=== PATIENT | female | born 1995 | race American Indian/Alaskan Native ===

== ENCOUNTER 2019-05-14 21:17 | Emergency (ER) | payer SELFPAY ==
[2019-05-14 21:22] VITALS: BP 122/79
--- NOTE | 2019-05-14 21:23 | Emergency Department Report ---
Blank Doc - Documentation Documentation: 23-year-old female that presents with URI symptoms. This initial assessment/diagnostic orders/clinical plan/treatment(s) is/are subject to change based on patient's health status, clinical progression and re- assessment by fellow clinical providers in the ED. Further treatment and workup at subsequent clinical providers discretion. Patient/guardians urged not to elope from the ED as their condition may be serious if not clinically assessed and managed. Initial orders include: 1- Patient sent to [facility] for further evaluation and treatment 2- CXR 3- UA
[2019-05-14 21:48] LABS: Bilirubin,Urine NEG (Negative); Blood,Urine SM (Negative); Color,Urine Yellow (Yellow); Mucus,Urine FEW /HPF; Protein,Urine <15 mg/dL mg/dL (Negative); Urobilinogen,Urine < 2.0 mg/dL (<2.0)
[2019-05-14 22:09] LABS: HCG Qualitative,Urine Negative (Negative)
--- NOTE | 2019-05-14 22:41 | XRay Report ---
CHEST 2 VIEWS INDICATION / CLINICAL INFORMATION: Cough. COMPARISON: None available. FINDINGS: SUPPORT DEVICES: None. HEART / MEDIASTINUM: The heart size and pulmonary vasculature are normal. LUNGS / PLEURA: No significant pulmonary or pleural abnormality. No pneumothorax. ADDITIONAL FINDINGS: No significant additional findings. IMPRESSION: No acute findings. Signer Name: Fly Bradley MD Signed: 05/14/2019 10:37 PM Workstation Name: [id number]
--- NOTE | 2019-05-14 23:25 | Emergency Department Report ---
- General Chief Complaint: Upper Respiratory Infection Stated Complaint: FLU LIKE SYMPTOMS Time Seen by Provider: 05/14/19 21:21 Source: patient Mode of arrival: Ambulatory Limitations: No Limitations - History of Present Illness Initial Comments: 23-year-old female that presents with URI symptoms She c/o runny nose, stuffy nose, itchy eyes, watery eyes, ear pain, sore throat, dry cough for the past 3 day(s) -Pain severity: 4/10, she denies sore throat as the main complaint without concurrent cold-like symptoms. She has not therapies that have improved symptoms. MD Complaint: cough, sore throat, rhinorrhea, nasal congestion Onset/Timin -: Gradual, days(s) Severity scale (0 -10): 4 Quality: dull Consistency: constant Improves With: nothing Worsens With: nothing Context: sick contacts Associated Symptoms: denies other symptoms - Related Data Previous Rx's Medication Instructions Recorded Last Taken Type Dicyclomine [Bentyl] 10 mg PO QID PRN #20 capsule 11/09/15 Unknown Rx Ondansetron [Zofran Odt] 4 mg PO QID PRN #20 tab.rapdis 11/09/15 Unknown Rx Fluticasone [Flonase] 1 spray NS QDAY #1 bottle 05/14/19 Unknown Rx Prednisone [predniSONE 5 mg (6-Day 5 mg PO .TAPER #1 tab.ds.pk 05/14/19 Unknown Rx Pack, 21 Tabs)] guaiFENesin ER [Mucinex ER] 600 mg PO Q12H 10 Days #20 05/14/19 Unknown Rx tablet.er Allergies Allergy/AdvReac Type Severity Reaction Status Date / Time No Known Allergies Allergy Unverified 09/27/13 14:42 ED Review of Systems ROS: Stated complaint: FLU LIKE SYMPTOMS Other details as noted in HPI Comment: All other systems reviewed and negative ENT: ear pain, throat pain Respiratory: cough Cardiovascular: denies: chest pain Gastrointestinal: denies: abdominal pain, nausea, vomiting ED Past Medical Hx - Past Medical History Previous Medical History?: No Hx Hypertension: No Hx Congestive Heart Failure: No Hx Diabetes: No Hx Deep Vein Thrombosis: No Hx Renal Disease: No Hx Sickle Cell Disease: No Hx Seizures: No Hx Asthma: No Hx COPD: No Hx HIV: No - Surgical History Past Surgical History?: No - Social History Smoking Status: Never Smoker Substance Use Type: None - Medications Home Medications: Home Medications Medication Instructions Recorded Confirmed Last Taken Type Dicyclomine [Bentyl] 10 mg PO QID PRN #20 capsule 11/09/15 Unknown Rx Ondansetron [Zofran Odt] 4 mg PO QID PRN #20 tab.rapdis 11/09/15 Unknown Rx Fluticasone [Flonase] 1 spray NS QDAY #1 bottle 05/14/19 Unknown Rx Prednisone [predniSONE 5 mg (6-Day 5 mg PO .TAPER #1 tab.ds.pk 05/14/19 Unknown Rx Pack, 21 Tabs)] guaiFENesin ER [Mucinex ER] 600 mg PO Q12H 10 Days #20 05/14/19 Unknown Rx tablet.er ED Physical Exam - General Limitations: No Limitations General appearance: alert, in no apparent distress - Head Head exam: Present: atraumatic, normocephalic - Eye Eye exam: Present: normal appearance, PERRL, EOMI Pupils: Present: normal accommodation, irregular - ENT ENT exam: Present: TM's normal bilaterally, other (mild nasal mucosal erythema, no pharyngeal erythema) - Respiratory Respiratory exam: Present: normal lung sounds bilaterally - Cardiovascular Cardiovascular Exam: Present: normal rhythm. Absent: regular rate - GI/Abdominal GI/Abdominal exam: Present: soft - Back Exam Back exam: Present: normal inspection - Neurological Exam Neurological exam: Present: alert, oriented X3, CN II-XII intact - Psychiatric Psychiatric exam: Present: normal affect ED Course Vital Signs 05/14/19 21:21 Temperature 97.9 F Pulse Rate 72 Respiratory 20 Rate Blood Pressure 122/79 O2 Sat by Pulse 98 Oximetry Critical care attestation.: If time is entered above; I have spent that time in minutes in the direct care of this critically ill patient, excluding procedure time. ED Disposition Clinical Impression: Viral upper respiratory infection Disposition: DC-01 TO HOME OR SELFCARE Is pt being admited?: No Does the pt Need Aspirin: No Condition: Stable Instructions: Upper Respiratory Infection (ED) Prescriptions: Fluticasone [Flonase] 1 spray NS QDAY #1 bottle guaiFENesin ER [Mucinex ER] 600 mg PO Q12H 10 Days #20 tablet.er Prednisone [predniSONE 5 mg (6-Day Pack, 21 Tabs)] 5 mg PO .TAPER #1 tab.ds.pk Referrals: KELECHI GUZMÁN MD [Primary Care Provider] - 3-5 Days Forms: Work/School Release Form(ED)
== END 2019-05-14 23:50 | disposition home or self-care (01) ==
LOC: ED 21:17
DX: J06.9 Acute upper respiratory infection, unspecified (principal)
CPT/HCPCS: 71046; 81001; 81025

== ENCOUNTER 2020-03-24 05:08 | Emergency (ER) | payer OTHER ==
[2020-03-24] MEDS ORDERED: MORPHINE 4 MG/1 ML INJ IV ONE (05:24)
--- NOTE | 2020-03-24 05:26 | Event Note ---
Date: 03/24/20 Medical screening note: 24-year-old female brought to the hospital by EMS complaining of right-sided abdominal pain, fairly tender, with nausea, vomiting and diarrhea. She states that she is not . Check labs, give pain medicine, obtain EKG, reassess, anticipate need for objective imaging, ultrasound versus CT scan, imaging selection will depend on status
[2020-03-24] MEDS: ONDANSETRON 4 MG/2 ML INJ IV ONE ×2 (05:49)
[2020-03-24 05:59] LABS: Basophils # (Auto) 0.1 K/mm3 (0.0-0.1); Basophils % (Auto) 0.7 % (0.0-1.8); Eosinophils # (Auto) 0.1 K/mm3 (0.0-0.4); Hematocrit 36.8 % (30.3-42.9); Hemoglobin 12.3 gm/dl (10.1-14.3); Lymphocytes # (Auto) 2.7 K/mm3 (1.2-5.4); Lymphocytes % (Auto) 32.7 % (13.4-35.0); Mean Corpuscular HGB Conc 34 % (30-34); Mean Corpuscular Volume 84 fl (79-97); Monocytes # (Auto) 0.5 K/mm3 (0.0-0.8); Monocytes % (Auto) 6.4 % (0.0-7.3); Platelet Count 279 K/mm3 (140-440); Red Blood Count 4.41 M/mm3 (3.65-5.03); Red Cell Distribution Width 14.4 % (13.2-15.2)
[2020-03-24] MEDS ORDERED: METOCLOPRAMIDE 10 MG/2 ML INJ IV ONE (07:05)
--- NOTE | 2020-03-24 07:09 | Emergency Department Report ---
ED Abdominal Pain HPI - General Chief Complaint: Abdominal Pain Stated Complaint: ABD PAIN Time Seen by Provider: 03/24/20 06:47 Source: patient, EMS Mode of arrival: Stretcher Limitations: No Limitations - History of Present Illness Initial Comments: Patient is 24 years old female with no significant past medical history. Patient brought to the emergency room via EMS from home for evaluation of abdominal pain, diffuse, crampy with no radiation. Patient stated that she has this pain for the last 2 to 3 days. Patient pain associated with significant nausea and vomiting and diarrhea. Patient denied any fever or chills. No chest pain or shortness of breath. MD Complaint: abdominal pain Severity scale (0 -10): 10 - Related Data Previous Rx's Medication Instructions Recorded Last Taken Type Dicyclomine [Bentyl] 10 mg PO QID PRN #20 capsule 11/09/15 Unknown Rx Ondansetron [Zofran Odt] 4 mg PO QID PRN #20 tab.rapdis 11/09/15 Unknown Rx Fluticasone [Flonase] 1 spray NS QDAY #1 bottle 05/14/19 Unknown Rx Prednisone [predniSONE 5 mg (6-Day 5 mg PO .TAPER #1 tab.ds.pk 05/14/19 Unknown Rx Pack, 21 Tabs)] guaiFENesin ER [Mucinex ER] 600 mg PO Q12H 10 Days #20 05/14/19 Unknown Rx tablet.er Allergies Allergy/AdvReac Type Severity Reaction Status Date / Time No Known Allergies Allergy Unverified 09/27/13 14:42 ED Review of Systems ROS: Stated complaint: ABD PAIN Other details as noted in HPI Comment: All other systems reviewed and negative Constitutional: denies: chills, fever Respiratory: denies: cough, shortness of breath, SOB with exertion, wheezing Cardiovascular: denies: chest pain, palpitations Gastrointestinal: abdominal pain, nausea, vomiting, diarrhea. denies: constipation, hematemesis, melena, hematochezia Genitourinary: denies: urgency, dysuria Musculoskeletal: denies: back pain Neurological: denies: headache, weakness, numbness, paresthesias, confusion ED Past Medical Hx - Past Medical History Previous Medical History?: No Hx Hypertension: No Hx Congestive Heart Failure: No Hx Diabetes: No Hx Deep Vein Thrombosis: No Hx Renal Disease: No Hx Sickle Cell Disease: No Hx Seizures: No Hx Asthma: No Hx COPD: No Hx HIV: No - Surgical History Past Surgical History?: No - Social History Smoking Status: Never Smoker Substance Use Type: None - Medications Home Medications: Home Medications Medication Instructions Recorded Confirmed Last Taken Type Dicyclomine [Bentyl] 10 mg PO QID PRN #20 capsule 11/09/15 Unknown Rx Ondansetron [Zofran Odt] 4 mg PO QID PRN #20 tab.rapdis 11/09/15 Unknown Rx Fluticasone [Flonase] 1 spray NS QDAY #1 bottle 05/14/19 Unknown Rx Prednisone [predniSONE 5 mg (6-Day 5 mg PO .TAPER #1 tab.ds.pk 05/14/19 Unknown Rx Pack, 21 Tabs)] guaiFENesin ER [Mucinex ER] 600 mg PO Q12H 10 Days #20 05/14/19 Unknown Rx tablet.er ED Physical Exam - General Limitations: No Limitations General appearance: alert, in distress (Moderate distress secondary to pain.) - Head Head exam: Present: atraumatic, normocephalic, normal inspection - Eye Eye exam: Present: normal appearance, PERRL - ENT ENT exam: Present: mucous membranes dry - Neck Neck exam: Present: normal inspection, full ROM. Absent: tenderness, meningismus - Respiratory Respiratory exam: Present: normal lung sounds bilaterally - Cardiovascular Cardiovascular Exam: Present: regular rate, normal rhythm, normal heart sounds - GI/Abdominal GI/Abdominal exam: Present: soft, tenderness, normal bowel sounds. Absent: distended, guarding, rebound, rigid, organomegaly, mass, bruit, pulsatile mass, hernia - Extremities Exam Extremities exam: Present: normal inspection, full ROM, normal capillary refill. Absent: tenderness, pedal edema, calf tenderness - Back Exam Back exam: Present: normal inspection, full ROM. Absent: CVA tenderness (R), CVA tenderness (L) - Neurological Exam Neurological exam: Present: alert, oriented X3, CN II-XII intact, normal gait. Absent: motor sensory deficit - Skin Skin exam: Present: warm, intact, normal color ED Course Vital Signs 03/24/20 03/24/20 03/24/20 05:24 05:50 06:09 Temperature 98.3 F Pulse Rate 75 Respiratory 20 29 H 20 Rate Blood Pressure 120/78 [Right] O2 Sat by Pulse 100 99 Oximetry 03/24/20 03/24/20 03/24/20 06:20 07:21 08:52 Temperature Pulse Rate 70 Respiratory 20 20 16 Rate Blood Pressure 120/59 [Right] O2 Sat by Pulse 98 Oximetry ED Medical Decision Making - Lab Data Result diagrams: 03/24/20 05:49 03/24/20 05:49 - Radiology Data Radiology results: report reviewed - Medical Decision Making Patient is 24 years old female with no significant past medical history. Patient brought to the emergency room via EMS from home for evaluation of abdominal pain, diffuse, crampy with no radiation. Patient stated that she has this pain for the last 2 to 3 days. Patient pain associated with significant nausea and vomiting and diarrhea. Patient denied any fever or chills. No chest pain or shortness of breath. Patient received morphine, Zofran, Reglan and Bentyl. Patient stated that she is feeling much better. Labs reviewed and is unremarkable. CT abdomen and pelvis is negative for acute finding. Patient symptoms is most likely consistent with gastroenteritis however patient advised to follow-up with her primary care physician in the next 2 to 3 days and to return to the ER she develop any new symptoms. Critical care attestation.: If time is entered above; I have spent that time in minutes in the direct care of this critically ill patient, excluding procedure time. ED Disposition Clinical Impression: Abdominal pain, Gastroenteritis Disposition: DC-01 TO HOME OR SELFCARE Is pt being admited?: No Condition: Stable Instructions: Abdominal Pain (ED), Gastroenteritis (ED) Referrals: PRIMARY CARE, [Primary Care Provider] - 3-5 Days
[2020-03-24 07:26] LABS: Blood Urea Nitrogen 9 mg/dL (7-17)
[2020-03-24 07:27] LABS: BUN/Creatinine Ratio 11; Bilirubin,Direct 0.2 mg/dL (0-0.2); Calcium 8.5 mg/dL (8.4-10.2)
[2020-03-24 07:28] LABS: Alanine Aminotransferase 15 units/L (7-56); Albumin 3.8 g/dL (3.9-5); Hemolysis Index 68
[2020-03-24] MEDS ORDERED: MORPHINE 2 MG/1 ML INJ IV ONE (08:50)
--- NOTE | 2020-03-24 08:58 | Cat Scan Report ---
CT abdomen pelvis w con INDICATION / CLINICAL INFORMATION: MAIN. 100 cc of Omnipaque 300 was injected intravenously TECHNIQUE: All CT scans at this location are performed using CT dose reduction for ALARA by means of automated e xposure control. COMPARISON: None available. FINDINGS: No free fluid is seen in the abdomen. The liver, spleen, kidneys, pancreas, adrenal glands, gallbladd er and great vessels are normal. No enlarged mesenteric or retroperitoneal lymph nodes are seen In the pelvis, no free fluid is seen. No enlarged lymph nodes are identified. The bladder and the hakeem endix are normal. IMPRESSION: Negative CT of the abdomen and pelvis. Signer Name: Nitin Ramirez MD FACR Signed: 03/24/2020 8:54 AM Workstation Name: [id number]
[2020-03-24] MEDS ORDERED: DICYCLOMINE 20 MG/2 ML INJ IM ONE (09:22)
[2020-03-24] MEDS ORDERED: diphenhydrAMINE 50 MG/ML VIAL IV ONE (09:40)
[2020-03-24 09:52] VITALS: BP 114/62
== END 2020-03-24 10:30 | disposition home or self-care (01) ==
LOC: ED 05:08
DX: K52.9 Noninfective gastroenteritis and colitis, unspecified (principal); Z79.899 Other long term (current) drug therapy
CPT/HCPCS: 36415; 74177; 80048; 80076; 82550; 83690; 83735; 84702; 85025; 93005; 96372; 96375; 96376; 99285; J0500; J1200; J2270; J2405; J2765; Q9967; 96374

== ENCOUNTER 2020-06-30 08:34 | Emergency (ER) | payer OTHER ==
[2020-06-30] MEDS ORDERED: SODIUM CHLORIDE 0.9% 1000 ML 1,000 ML IV ONE (09:31)
[2020-06-30] MEDS ORDERED: ONDANSETRON 4 MG/2 ML INJ IV ONE ×2 (09:31→15:42)
--- NOTE | 2020-06-30 09:33 | Emergency Department Report ---
ED General Adult HPI - General Chief complaint: Nausea/Vomiting/Diarrhea Stated complaint: ABD PAIN/VOMITING Time Seen by Provider: 06/30/20 09:13 Source: patient Mode of arrival: Ambulatory Limitations: No Limitations - History of Present Illness Initial comments: 24-year-old -[place] Citizen patient presents with complaints of sudden onset of abdominal pain and nausea and vomiting x this morning. She denies any past medical history. Patient rates her abdominal pain is a 10/10 in severity and denies any hematemesis/coffee-ground emesis, diarrhea/constipation, melena/hematochezia, fever/chills/sweats, cough, chest pain, or shortness of breath. She also denies any urinary symptoms or vaginal discharge/dyspareunia. Severity scale (0 -10): 7 - Related Data Previous Rx's Medication Instructions Recorded Last Taken Type Dicyclomine [Bentyl] 10 mg PO QID PRN #20 capsule 11/09/15 Unknown Rx Ondansetron [Zofran Odt] 4 mg PO QID PRN #20 tab.rapdis 11/09/15 Unknown Rx Fluticasone [Flonase] 1 spray NS QDAY #1 bottle 05/14/19 Unknown Rx Prednisone [predniSONE 5 mg (6-Day 5 mg PO .TAPER #1 tab.ds.pk 05/14/19 Unknown Rx Pack, 21 Tabs)] guaiFENesin ER [Mucinex ER] 600 mg PO Q12H 10 Days #20 05/14/19 Unknown Rx tablet.er Dicyclomine [Bentyl] 20 mg PO QID #20 tablet 03/24/20 Unknown Rx Metoclopramide [Reglan] 10 mg PO TID PRN #20 tab 03/24/20 Unknown Rx Ondansetron [Zofran Odt] 4 mg PO Q8HR #15 tab.rapdis 06/30/20 Unknown Rx Promethazine [Phenergan] [address] Q6HR PRN #20 supp.rect 06/30/20 Unknown Rx Allergies Allergy/AdvReac Type Severity Reaction Status Date / Time No Known Allergies Allergy Unverified 09/27/13 14:42 ED Review of Systems ROS: Stated complaint: ABD PAIN/VOMITING Other details as noted in HPI Constitutional: denies: chills, diaphoresis, fever, malaise, weakness ENT: denies: throat pain Respiratory: denies: cough, shortness of breath Cardiovascular: denies: chest pain Endocrine: denies: excessive sweating Gastrointestinal: abdominal pain, nausea, vomiting. denies: diarrhea, constipation, hematemesis, melena, hematochezia Genitourinary: denies: urgency, dysuria, frequency, hematuria, discharge Skin: denies: rash, lesions, change in color Neurological: denies: headache Hematological/Lymphatic: denies: swollen glands ED Past Medical Hx - Past Medical History Previous Medical History?: Yes Hx Hypertension: No Hx Congestive Heart Failure: No Hx Diabetes: No Hx Deep Vein Thrombosis: No Hx Renal Disease: No Hx Sickle Cell Disease: No Hx Seizures: No Hx Asthma: No Hx COPD: No Hx HIV: No - Surgical History Past Surgical History?: No - Social History Smoking Status: Never Smoker Substance Use Type: None - Medications Home Medications: Home Medications Medication Instructions Recorded Confirmed Last Taken Type Dicyclomine [Bentyl] 10 mg PO QID PRN #20 capsule 11/09/15 Unknown Rx Ondansetron [Zofran Odt] 4 mg PO QID PRN #20 tab.rapdis 11/09/15 Unknown Rx Fluticasone [Flonase] 1 spray NS QDAY #1 bottle 05/14/19 Unknown Rx Prednisone [predniSONE 5 mg (6-Day 5 mg PO .TAPER #1 tab.ds.pk 05/14/19 Unknown Rx Pack, 21 Tabs)] guaiFENesin ER [Mucinex ER] 600 mg PO Q12H 10 Days #20 05/14/19 Unknown Rx tablet.er Dicyclomine [Bentyl] 20 mg PO QID #20 tablet 03/24/20 Unknown Rx Metoclopramide [Reglan] 10 mg PO TID PRN #20 tab 03/24/20 Unknown Rx Ondansetron [Zofran Odt] 4 mg PO Q8HR #15 tab.rapdis 06/30/20 Unknown Rx Promethazine [Phenergan] [address] Q6HR PRN #20 supp.rect 06/30/20 Unknown Rx ED Physical Exam - General Limitations: No Limitations General appearance: alert, obese, other (Patient appears uncomfortable holding abdomen; active vomiting) - Head Head exam: Present: atraumatic, normocephalic - Eye Eye exam: Present: normal appearance. Absent: scleral icterus - Neck Neck exam: Present: normal inspection, full ROM - Respiratory Respiratory exam: Present: normal lung sounds bilaterally. Absent: respiratory distress - Cardiovascular Cardiovascular Exam: Present: regular rate, normal rhythm, normal heart sounds - GI/Abdominal GI/Abdominal exam: Present: soft, tenderness, guarding, rebound, normal bowel sounds - Extremities Exam Extremities exam: Present: normal inspection, full ROM - Back Exam Back exam: Present: normal inspection. Absent: CVA tenderness (R), CVA tenderness (L) - Neurological Exam Neurological exam: Present: alert, oriented X3 - Psychiatric Psychiatric exam: Present: normal affect - Skin Skin exam: Present: warm, dry, intact, normal color. Absent: rash, cyanosis, diaphoretic, ecchymosis ED Course Vital Signs 06/30/20 08:41 Temperature 97.6 F Pulse Rate 81 Respiratory 18 Rate Blood Pressure 122/87 Blood Pressure 122/87 [Right] O2 Sat by Pulse 100 Oximetry ED Medical Decision Making - Lab Data Result diagrams: 06/30/20 09:23 06/30/20 09:23 Lab Results 06/30/20 06/30/20 06/30/20 Range/Units 09:23 09:23 09:23 WBC 7.4 (4.5-11.0) K/mm3 RBC 4.22 (3.65-5.03) M/mm3 Hgb 12.3 (10.1-14.3) gm/dl Hct 36.7 (30.3-42.9) % MCV 87 (79-97) fl MCH 29 (28-32) pg MCHC 34 (30-34) % RDW 14.3 (13.2-15.2) % Plt Count 260 (140-440) K/mm3 Lymph % (Auto) 29.0 (13.4-35.0) % [place] % (Auto) 6.1 (0.0-7.3) % Eos % (Auto) 1.3 (0.0-4.3) % Baso % (Auto) 0.5 (0.0-1.8) % Lymph # (Auto) 2.1 (1.2-5.4) K/mm3 [place] # (Auto) 0.4 (0.0-0.8) K/mm3 Eos # (Auto) 0.1 (0.0-0.4) K/mm3 Baso # (Auto) 0.0 (0.0-0.1) K/mm3 Seg Neutrophils % 63.1 (40.0-70.0) % Seg Neutrophils # 4.6 (1.8-7.7) K/mm3 Sodium 139 (137-145) mmol/L Potassium 3.9 (3.6-5.0) mmol/L Chloride 103.4 (98-107) mmol/L Carbon Dioxide 26 (22-30) mmol/L Anion Gap 14 mmol/L BUN 8 (7-17) mg/dL Creatinine 0.8 (0.6-1.2) mg/dL Estimated GFR > 60 ml/min BUN/Creatinine Ratio 10 % Glucose 127 H (65-100) mg/dL Calcium 9.2 (8.4-10.2) mg/dL Total Bilirubin 1.00 (0.1-1.2) mg/dL AST 14 (5-40) units/L ALT 15 (7-56) units/L Alkaline Phosphatase 74 (35-129) units/L Total Protein 6.9 (6.3-8.2) g/dL Albumin 3.7 L (3.9-5) g/dL Albumin/Globulin Ratio 1.2 % Lipase 22 (13-60) units/L HCG, Quant < 2 (0-4) mIU/mL Urine Color (Yellow) Urine Turbidity (Clear) Urine pH (5.0-7.0) Ur Specific [place] (1.003-1.030) Urine Protein (Negative) mg/dL Urine Glucose (UA) (Negative) mg/dL Urine Ketones (Negative) mg/dL Urine Blood (Negative) Urine Nitrite (Negative) Urine Bilirubin (Negative) Urine Urobilinogen (<2.0) mg/dL Ur Leukocyte Esterase (Negative) Urine WBC (Auto) (0.0-6.0) /HPF Urine RBC (Auto) (0.0-6.0) /HPF U Epithel Cells (Auto) (0-13.0) /HPF Urine Mucus /HPF 06/30/20 Range/Units 11:42 WBC (4.5-11.0) K/mm3 RBC (3.65-5.03) M/mm3 Hgb (10.1-14.3) gm/dl Hct (30.3-42.9) % MCV (79-97) fl MCH (28-32) pg MCHC (30-34) % RDW (13.2-15.2) % Plt Count (140-440) K/mm3 Lymph % (Auto) (13.4-35.0) % [place] % (Auto) (0.0-7.3) % Eos % (Auto) (0.0-4.3) % Baso % (Auto) (0.0-1.8) % Lymph # (Auto) (1.2-5.4) K/mm3 [place] # (Auto) (0.0-0.8) K/mm3 Eos # (Auto) (0.0-0.4) K/mm3 Baso # (Auto) (0.0-0.1) K/mm3 Seg Neutrophils % (40.0-70.0) % Seg Neutrophils # (1.8-7.7) K/mm3 Sodium (137-145) mmol/L Potassium (3.6-5.0) mmol/L Chloride (98-107) mmol/L Carbon Dioxide (22-30) mmol/L Anion Gap mmol/L BUN (7-17) mg/dL Creatinine (0.6-1.2) mg/dL Estimated GFR ml/min BUN/Creatinine Ratio % Glucose (65-100) mg/dL Calcium (8.4-10.2) mg/dL Total Bilirubin (0.1-1.2) mg/dL AST (5-40) units/L ALT (7-56) units/L Alkaline Phosphatase (35-129) units/L Total Protein (6.3-8.2) g/dL Albumin (3.9-5) g/dL Albumin/Globulin Ratio % Lipase (13-60) units/L HCG, Quant (0-4) mIU/mL Urine Color Yellow (Yellow) Urine Turbidity Clear (Clear) Urine pH 9.0 H (5.0-7.0) Ur Specific [place] 1.044 H (1.003-1.030) Urine Protein <15 mg/dl (Negative) mg/dL Urine Glucose (UA) Neg (Negative) mg/dL Urine Ketones Tr (Negative) mg/dL Urine Blood Neg (Negative) Urine Nitrite Neg (Negative) Urine Bilirubin Neg (Negative) Urine Urobilinogen < 2.0 (<2.0) mg/dL Ur Leukocyte Esterase Neg (Negative) Urine WBC (Auto) < 1.0 (0.0-6.0) /HPF Urine RBC (Auto) 1.0 (0.0-6.0) /HPF U Epithel Cells (Auto) 1.0 (0-13.0) /HPF Urine Mucus Few /HPF - Radiology Data Radiology results: report reviewed CT ABDOMEN AND PELVIS WITH CONTRAST INDICATION / CLINICAL INFORMATION: acute right sided abdominal pain. TECHNIQUE: Axial CT images were obtained through the abdomen and pelvis after IV contrast. All CT scans at this location are performed using CT dose reduction for ALARA by means of automated exposure control. COMPARISON: 03/24/2020 FINDINGS: LOWER CHEST: No significant abnormality. LIVER: No significant abnormality. GALLBLADDER: No significant abnormality. BILE DUCTS: No significant abnormality. PANCREAS: No significant abnormality. SPLEEN: Splenule is noted. ADRENALS: No significant abnormality. RIGHT KIDNEY / URETER: No significant abnormality. LEFT KIDNEY / URETER: No significant abnormality. STOMACH / SMALL BOWEL: No significant abnormality. COLON: No significant abnormality. APPENDIX: No significant abnormality. PERITONEUM: No free fluid. No free air. No fluid collection. LYMPH NODES: No significant adenopathy. AORTA / ARTERIES: No significant abnormality. IVC / VEINS: Phleboliths noted throughout the pelvis. URINARY BLADDER: No significant abnormality. REPRODUCTIVE ORGANS: No significant abnormality. ADDITIONAL FINDINGS: None. SKELETAL SYSTEM: No significant abnormality. IMPRESSION: 1. No acute abnormality. No significant interval change since prior exam. ULTRASOUND ABDOMEN, LIMITED (RIGHT UPPER QUADRANT) INDICATION: Acute right-sided abdominal pain. COMPARISON: CT of the abdomen and pelvis earlier today. FINDINGS: PANCREAS: Visualized portion shows no significant abnormality. LIVER: 15 cm in length with mild generalized increased echogenicity compared to the right renal cortex. No focal lesion and normal directional blood flow in the main portal vein. GALLBLADDER: No significant abnormality. BILE DUCTS: No significant abnormality. Common bile duct measures 6 mm. FREE FLUID: None. ADDITIONAL FINDINGS: None. IMPRESSION: 1. Mild diffuse fatty infiltration of the liver. 2. No evidence of gallstones. - Medical Decision Making 24-year-old -[place] Citizen patient presents with complaints of sudden onset of abdominal pain and nausea and vomiting x this morning. She denies any past medical history. Patient rates her abdominal pain is a 10/10 in severity and denies any hematemesis/coffee-ground emesis, diarrhea/constipation, melena/hematochezia, fever/chills/sweats, cough, chest pain, or shortness of breath. She also denies any urinary symptoms or vaginal discharge/dyspareunia. She admits to marijuana use 1 week ago and denies any recent use or alcohol intake. Abdominal tenderness noted to the right lower quadrant and right upper quadrant and periumbilical area on exam. CT abdomen is normal. Right upper quadrant ultrasound is negative for acute abnormalities. CBC shows normal white count. No significant abnormalities noted on CMP. UA is normal. Patient given multiple doses of antiemetic medications, however continues to vomit with oral fluid intake. Given patient's electrolytes are normal, her vitals are normal, and no abnormalities are noted on scans, I believe patient is stable for discharge home at this time. Patient informed to take both Zofran and Phenergan 30 minutes prior to eating or drinking. GI follow-up recommended. Patient also informed to return to ED if she is unable to tolerate p.o. intake over the next 24 hours or she develops dizziness or new or worsening symptoms. Patient verbalizes understanding. Critical care attestation.: If time is entered above; I have spent that time in minutes in the direct care of this critically ill patient, excluding procedure time. ED Disposition Clinical Impression: Gastroenteritis Intractable vomiting Qualifiers: Vomiting type: unspecified Nausea presence: with nausea Qualified Code(s): R11.2 - Nausea with vomiting, unspecified Disposition: DC-01 TO HOME OR SELFCARE Is pt being admited?: No Condition: Stable Instructions: Gastroenteritis (ED) Prescriptions: Promethazine [Phenergan] [address] Q6HR PRN #20 supp.rect PRN Reason: Nausea Ondansetron [Zofran Odt] 4 mg PO Q8HR #15 tab.rapdis Referrals: [facility] [Provider Group] - 2-3 Days
[2020-06-30 09:47] LABS: Basophils % (Auto) 0.5 % (0.0-1.8); Eosinophils # (Auto) 0.1 K/mm3 (0.0-0.4); Eosinophils % (Auto) 1.3 % (0.0-4.3); Hematocrit 36.7 % (30.3-42.9); Hemoglobin 12.3 gm/dl (10.1-14.3); Lymphocytes # (Auto) 2.1 K/mm3 (1.2-5.4); Mean Corpuscular HGB Conc 34 % (30-34); Mean Corpuscular Volume 87 fl (79-97); Monocytes # (Auto) 0.4 K/mm3 (0.0-0.8); Monocytes % (Auto) 6.1 % (0.0-7.3); Platelet Count 260 K/mm3 (140-440); Red Blood Count 4.22 M/mm3 (3.65-5.03); Red Cell Distribution Width 14.3 % (13.2-15.2)
[2020-06-30 10:01] LABS: Alanine Aminotransferase 15 units/L (7-56); Albumin 3.7 g/dL (3.9-5); BUN/Creatinine Ratio 10; Blood Urea Nitrogen 8 mg/dL (7-17); Calcium 9.2 mg/dL (8.4-10.2); Hemolysis Index 6
[2020-06-30] MEDS ORDERED: diphenhydrAMINE 50 MG/ML VIAL IV ONE (10:22)
[2020-06-30] MEDS ORDERED: METOCLOPRAMIDE 10 MG/2 ML INJ IV ONE (10:22)
[2020-06-30] MEDS ORDERED: MORPHINE 4 MG/1 ML INJ IV ONE (11:24)
--- NOTE | 2020-06-30 11:46 | Cat Scan Report ---
CT ABDOMEN AND PELVIS WITH CONTRAST INDICATION / CLINICAL INFORMATION: acute right sided abdominal pain. TECHNIQUE: Axial CT images were obtained through the abdomen and pelvis after IV contrast. All CT scans at this location are performed using CT dose reduction for ALARA by means of automated exposure control. COMPARISON: 03/24/2020 FINDINGS: LOWER CHEST: No significant abnormality. LIVER: No significant abnormality. GALLBLADDER: No significant abnormality. BILE DUCTS: No significant abnormality. PANCREAS: No significant abnormality. SPLEEN: Splenule is noted. ADRENALS: No significant abnormality. RIGHT KIDNEY / URETER: No significant abnormality. LEFT KIDNEY / URETER: No significant abnormality. STOMACH / SMALL BOWEL: No significant abnormality. COLON: No significant abnormality. APPENDIX: No significant abnormality. PERITONEUM: No free fluid. No free air. No fluid collection. LYMPH NODES: No significant adenopathy. AORTA / ARTERIES: No significant abnormality. IVC / VEINS: Phleboliths noted throughout the pelvis. URINARY BLADDER: No significant abnormality. REPRODUCTIVE ORGANS: No significant abnormality. ADDITIONAL FINDINGS: None. SKELETAL SYSTEM: No significant abnormality. IMPRESSION: 1. No acute abnormality. No significant interval change since prior exam. Signer Name: Andres Valenzuela MD Signed: 06/30/2020 11:42 AM Workstation Name: [id number]
[2020-06-30 12:20] LABS: Bilirubin,Urine NEG (Negative); Blood,Urine NEG (Negative); Color,Urine Yellow (Yellow); Mucus,Urine FEW /HPF; Protein,Urine <15 mg/dL mg/dL (Negative); Urobilinogen,Urine < 2.0 mg/dL (<2.0); WBC,Urine < 1.0 /HPF (0.0-6.0)
--- NOTE | 2020-06-30 13:53 | Ultrasound Report ---
ULTRASOUND ABDOMEN, LIMITED (RIGHT UPPER QUADRANT) INDICATION: Acute right-sided abdominal pain. COMPARISON: CT of the abdomen and pelvis earlier today. FINDINGS: PANCREAS: Visualized portion shows no significant abnormality. LIVER: 15 cm in length with mild generalized increased echogenicity compared to the right renal arcelia x. No focal lesion and normal directional blood flow in the main portal vein. GALLBLADDER: No significant abnormality. BILE DUCTS: No significant abnormality. Common bile duct measures 6 mm. FREE FLUID: None. ADDITIONAL FINDINGS: None. IMPRESSION: 1. Mild diffuse fatty infiltration of the liver. 2. No evidence of gallstones. Signer Name: Fly Bradley MD Signed: 06/30/2020 1:48 PM Workstation Name: [id number]
[2020-06-30] MEDS ORDERED: PANTOPRAZOLE 40 MG INJ IV ONE (14:20)
[2020-06-30] MEDS ORDERED: KETOROLAC 30 MG/1 ML INJ IV ONE (14:21)
[2020-06-30] MEDS ORDERED: PROMETHAZINE 25 MG RECT SUPP PR ONE (14:21)
[2020-06-30 16:33] VITALS: BP 118/90
== END 2020-06-30 16:31 | disposition home or self-care (01) ==
LOC: ED 08:34
DX: K52.9 Noninfective gastroenteritis and colitis, unspecified (principal); R11.10 Vomiting, unspecified; Z79.899 Other long term (current) drug therapy
CPT/HCPCS: 36415; 74177; 76705; 80053; 81001; 83690; 84702; 85025; 96361; 96374; 96375; 96376; 99284; C9113; J1200; J1885; J2270; J2405; J2765; J7030; Q9967

== ENCOUNTER 2020-12-17 05:19 | Emergency (ER) | payer OTHER ==
[2020-12-17] MEDS ORDERED: ONDANSETRON 4 MG/2 ML INJ IV ONE (07:50)
[2020-12-17] MEDS ORDERED: SODIUM CHLORIDE 0.9% 1000 ML 1,000 ML IV ONE (07:50)
[2020-12-17] MEDS ORDERED: KETOROLAC 30 MG/1 ML INJ IV ONE (07:52)
--- NOTE | 2020-12-17 07:52 | Emergency Department Report ---
ED General Adult HPI - General Chief complaint: Abdominal Pain Time Seen by Provider: 12/17/20 07:49 - History of Present Illness Initial comments: Patient is a 25-year-old female presents emergency department for evaluation of moderate, intermittent, crampy epigastric pain x3 days associated with nausea and vomiting without diarrhea. Patient denies fever, denies dysuria, denies history of abdominal surgery. Patient denies chest pain or shortness of breath. - Related Data Previous Rx's Medication Instructions Recorded Last Taken Type Dicyclomine [Bentyl] 10 mg PO QID PRN #20 capsule 11/09/15 Unknown Rx Ondansetron [Zofran Odt] 4 mg PO QID PRN #20 tab.rapdis 11/09/15 Unknown Rx Fluticasone [Flonase] 1 spray NS QDAY #1 bottle 05/14/19 Unknown Rx Prednisone [predniSONE 5 mg (6-Day 5 mg PO .TAPER #1 tab.ds.pk 05/14/19 Unknown Rx Pack, 21 Tabs)] guaiFENesin ER [Mucinex ER] 600 mg PO Q12H 10 Days #20 05/14/19 Unknown Rx tablet.er Dicyclomine [Bentyl] 20 mg PO QID #20 tablet 03/24/20 Unknown Rx Metoclopramide [Reglan] 10 mg PO TID PRN #20 tab 03/24/20 Unknown Rx Ondansetron [Zofran Odt] 4 mg PO Q8HR #15 tab.rapdis 06/30/20 Unknown Rx Promethazine [Phenergan] 25 mg [place] Q6HR PRN #20 supp.rect 06/30/20 Unknown Rx Nitrofurantoin Macrocrysta(Nf) 100 mg PO BID #14 capsule 12/17/20 Unknown Rx [Macrodantin CAP] Ondansetron HCl [Zofran] 4 mg PO Q8H #5 tablet 12/17/20 Unknown Rx Allergies Allergy/AdvReac Type Severity Reaction Status Date / Time No Known Allergies Allergy Unverified 09/27/13 14:42 ED Review of Systems ROS: Stated complaint: Other details as noted in HPI Comment: All other systems reviewed and negative ED Past Medical Hx - Past Medical History Hx Hypertension: No Hx Congestive Heart Failure: No Hx Diabetes: No Hx Deep Vein Thrombosis: No Hx Renal Disease: No Hx Sickle Cell Disease: No Hx Seizures: No Hx Asthma: No Hx COPD: No Hx HIV: No - Social History Smoking Status: Never Smoker Substance Use Type: None - Medications Home Medications: Home Medications Medication Instructions Recorded Confirmed Last Taken Type Dicyclomine [Bentyl] 10 mg PO QID PRN #20 capsule 11/09/15 Unknown Rx Ondansetron [Zofran Odt] 4 mg PO QID PRN #20 tab.rapdis 11/09/15 Unknown Rx Fluticasone [Flonase] 1 spray NS QDAY #1 bottle 05/14/19 Unknown Rx Prednisone [predniSONE 5 mg (6-Day 5 mg PO .TAPER #1 tab.ds.pk 05/14/19 Unknown Rx Pack, 21 Tabs)] guaiFENesin ER [Mucinex ER] 600 mg PO Q12H 10 Days #20 05/14/19 Unknown Rx tablet.er Dicyclomine [Bentyl] 20 mg PO QID #20 tablet 03/24/20 Unknown Rx Metoclopramide [Reglan] 10 mg PO TID PRN #20 tab 03/24/20 Unknown Rx Ondansetron [Zofran Odt] 4 mg PO Q8HR #15 tab.rapdis 06/30/20 Unknown Rx Promethazine [Phenergan] 25 mg [place] Q6HR PRN #20 supp.rect 06/30/20 Unknown Rx Nitrofurantoin Macrocrysta(Nf) 100 mg PO BID #14 capsule 12/17/20 Unknown Rx [Macrodantin CAP] Ondansetron HCl [Zofran] 4 mg PO Q8H #5 tablet 12/17/20 Unknown Rx ED Physical Exam - General General appearance: alert, in no apparent distress - Head Head exam: Present: atraumatic, normocephalic - Eye Eye exam: Present: normal appearance - ENT ENT exam: Present: mucous membranes moist - Neck Neck exam: Present: normal inspection - Respiratory Respiratory exam: Present: normal lung sounds bilaterally. Absent: respiratory distress - Cardiovascular Cardiovascular Exam: Present: regular rate, normal rhythm - GI/Abdominal GI/Abdominal exam: Present: soft, tenderness (Mild epigastric tenderness), normal bowel sounds - Extremities Exam Extremities exam: Present: normal inspection - Back Exam Back exam: Present: normal inspection - Neurological Exam Neurological exam: Present: alert, oriented X3 - Psychiatric Psychiatric exam: Present: normal affect, normal mood - Skin Skin exam: Present: warm, dry, intact, normal color. Absent: rash ED Course Vital Signs 12/17/20 12/17/20 07:54 10:39 Temperature 99.6 F Pulse Rate 85 78 Respiratory 18 19 Rate Blood Pressure 132/77 Blood Pressure 121/72 [Left] O2 Sat by Pulse 100 97 Oximetry - Reevaluation(s) Reevaluation #1: 12/17/20 07:51 Patient initially treated with IV normal saline, IV Toradol and Zofran IV 12/17/20 07:52 Reevaluation #2: 12/17/20 10:27 Patient reevaluated and in no acute distress, complaining of nausea, not vomiting. Abdomen soft nontender, patient denies abdominal pain, denies right lower quadrant pain. Ordered Reglan and Rocephin IV. ED Medical Decision Making - Lab Data Result diagrams: 12/17/20 08:20 12/17/20 08:20 Labs 12/17/20 12/17/20 12/17/20 08:20 08:20 08:20 WBC 15.1 H RBC 4.48 Hgb 13.4 Hct 39.1 MCV 87 MCH 30 MCHC 34 RDW 13.7 Plt Count 286 Lymph % (Auto) 21.4 [place] % (Auto) 5.4 Eos % (Auto) 0.0 Baso % (Auto) 0.3 Lymph # (Auto) 3.2 [place] # (Auto) 0.8 Eos # (Auto) 0.0 Baso # (Auto) 0.0 Seg Neutrophils % 72.9 H Seg Neutrophils # 11.0 H Sodium 136 L Potassium 3.8 Chloride 99.7 Carbon Dioxide 26 Anion Gap 14 BUN 10 Creatinine 0.8 Estimated GFR > 60 BUN/Creatinine Ratio 13 Glucose 108 H Calcium 9.1 Total Bilirubin 0.70 AST 12 ALT 12 Alkaline Phosphatase 70 Total Protein 7.2 Albumin 3.8 L Albumin/Globulin Ratio 1.1 Lipase 24 HCG, Qual Negative Urine Color Urine Turbidity Urine pH Ur Specific [place] Urine Protein Urine Glucose (UA) Urine Ketones Urine Blood Urine Nitrite Urine Bilirubin Urine Urobilinogen Ur Leukocyte Esterase Urine WBC (Auto) Urine RBC (Auto) U Epithel Cells (Auto) Urine Mucus 12/17/20 09:49 WBC RBC Hgb Hct MCV MCH MCHC RDW Plt Count Lymph % (Auto) [place] % (Auto) Eos % (Auto) Baso % (Auto) Lymph # (Auto) [place] # (Auto) Eos # (Auto) Baso # (Auto) Seg Neutrophils % Seg Neutrophils # Sodium Potassium Chloride Carbon Dioxide Anion Gap BUN Creatinine Estimated GFR BUN/Creatinine Ratio Glucose Calcium Total Bilirubin AST ALT Alkaline Phosphatase Total Protein Albumin Albumin/Globulin Ratio Lipase HCG, Qual Urine Color [place] Urine Turbidity Cloudy Urine pH 6.0 Ur Specific [place] 1.035 H Urine Protein 100 mg/dl Urine Glucose (UA) Neg Urine Ketones 80 Urine Blood Neg Urine Nitrite Neg Urine Bilirubin Neg Urine Urobilinogen 2.0 Ur Leukocyte Esterase Sm Urine WBC (Auto) 13.0 H Urine RBC (Auto) 6.0 U Epithel Cells (Auto) 8.0 Urine Mucus 3+ Vital Signs 12/17/20 07:54 Temperature 99.6 F Pulse Rate 85 Respiratory 18 Rate Blood Pressure 132/77 O2 Sat by Pulse 100 Oximetry Critical care attestation.: If time is entered above; I have spent that time in minutes in the direct care of this critically ill patient, excluding procedure time. ED Disposition Clinical Impression: Abdominal pain, Nausea & vomiting Disposition: DC-01 TO HOME OR SELFCARE Is pt being admited?: No Condition: Stable Instructions: Abdominal Pain, Adult, [id number], Nausea and Vomiting, Adult, Abdominal Pain (ED) Additional Instructions: Follow-up with primary care doctor in 1 to 2 days for reevaluation. Return to the emergency department for worsening symptoms. Prescriptions: Nitrofurantoin Macrocrysta(Nf) [Macrodantin CAP] 100 mg PO BID #14 capsule Ondansetron HCl [Zofran] 4 mg PO Q8H #5 tablet Referrals: PRIMARY CARE, [Primary Care Provider] - 3-5 Days
[2020-12-17 08:31] LABS: Basophils % (Auto) 0.3 % (0.0-1.8); Hematocrit 39.1 % (30.3-42.9); Hemoglobin 13.4 gm/dl (10.1-14.3); Lymphocytes # (Auto) 3.2 K/mm3 (1.2-5.4); Lymphocytes % (Auto) 21.4 % (13.4-35.0); Mean Corpuscular HGB Conc 34 % (30-34); Mean Corpuscular Volume 87 fl (79-97); Monocytes # (Auto) 0.8 K/mm3 (0.0-0.8); Monocytes % (Auto) 5.4 % (0.0-7.3); Platelet Count 286 K/mm3 (140-440); Red Blood Count 4.48 M/mm3 (3.65-5.03); Red Cell Distribution Width 13.7 % (13.2-15.2)
[2020-12-17 09:01] LABS: Alanine Aminotransferase 12 units/L (7-56); Albumin 3.8 g/dL (3.9-5); BUN/Creatinine Ratio 13; Blood Urea Nitrogen 10 mg/dL (7-17); Calcium 9.1 mg/dL (8.4-10.2); Hemolysis Index 5
[2020-12-17 10:00] LABS: Bilirubin,Urine NEG (Negative); Blood,Urine NEG (Negative); Color,Urine Amber (Yellow); Mucus,Urine 3+ /HPF
[2020-12-17] MEDS ORDERED: METOCLOPRAMIDE 10 MG/2 ML INJ IV ONE (10:26)
[2020-12-17] MEDS ORDERED: cefTRIAXone/NS 1 GM/50 ML 1 GM/50 ML BAG IV ONE (10:26)
[2020-12-17 10:41] VITALS: BP 121/72
== END 2020-12-17 11:03 | disposition home or self-care (01) ==
LOC: ED 07:45
DX: R10.13 Epigastric pain (principal); R11.2 Nausea with vomiting, unspecified; R19.7 Diarrhea, unspecified; Z79.899 Other long term (current) drug therapy
CPT/HCPCS: 36415; 80053; 81001; 83690; 84703; 85025; 87086; 96361; 96365; 96375; 99283; J0696; J1885; J2405; J2765; J7030